=== PATIENT | male | born 1955 | race Caucasian/White ===

== ENCOUNTER 2017-11-05 14:41 | Emergency (ER) | payer OTHER, SELFPAY ==
[2017-11-05] MEDS ORDERED: Lidocaine 1% w/Epinephrine 1:100K 20 ML VIAL ONE (15:32)
[2017-11-05] MEDS ORDERED: Adacel (T-DAP) 0.5 ML VIAL ONE (15:32)
[2017-11-05] MEDS ORDERED: Ketorolac Tromethamine 30 MG/ML VIAL ONE (15:32)
--- NOTE | 2017-11-05 15:50 | RAD ---
TWO VIEWS OF RIGHT FOREARM: INDICATION: Right forearm injury. COMPARISON: None. IMPRESSION: No acute fracture or subluxation is evident. Radiocapitellar alignment appears within normal limits. POS: NIKO
== END 2017-11-05 17:27 | disposition home or self-care (01) ==
LOC: ERS 14:41
DX: S51.811A Laceration without foreign body of right forearm, initial encounter (principal); F17.210 Nicotine dependence, cigarettes, uncomplicated; Z71.6 Tobacco abuse counseling; W45.8XXA Other foreign body or object entering through skin, initial encounter
CPT/HCPCS: 12032; 90471; 90715; 96372; 99406; J1885; J2001

== ENCOUNTER 2017-12-27 09:37 | Outpatient (CLI) | payer OTHER ==
[~2017-12-27 09:37] MED LIST: Gadobenate Dimeglumine 529 MG/1 ML (20ML VIAL) ONE
--- NOTE | 2017-12-27 12:01 | MRI ---
PRE AND POSTCONTRAST BRAIN MRI: Date: 12/27/17 HISTORY: Constant headaches x2 weeks. Headache wakes patient up from sleep. COMPARISON: None. TECHNIQUE: Brain MRI is performed without and with intravenous Gadolinium administration. Multisequential, multi planar imaging is performed. FINDINGS: No hemorrhage on the axial gradient echo sequence. Appropriate T1 marrow signal intensity of the calvarium. Midline brain parenchymal structures are unr emarkable. No parenchymal mass, mass effect, or midline shift. Brain volume, age-appropriate. Cortical schaeffer-whit e matter differentiation is preserved. Ventricles and sulci are patent and symmetric. Central arterial flow-voids are maintained. Absent restricted diffusion. No pathologic enhancement of the brain parenchyma. There is extensive mild mucosal thickening involving bilateral frontal sinuses and anterior ethmoid a ir cells. There is mucosal thickening involving the left sphenoid sinus with near complete opacificat ion of the left sphenoid sinus. Minimal mucosal thickening in the left maxillary sinus. Adequate mast oid air cell aeration. IMPRESSION: 1. Paranasal sinus disease. 2. No intracranial pathology is appreciated. POS: NIKO
== END 2017-12-27 09:38 | disposition home or self-care (01) ==
LOC: TBSIIMAG 09:37
PROVIDERS: ATTEND Family Medicine
DX: R51 Headache (principal); J32.9 Chronic sinusitis, unspecified
CPT/HCPCS: 70553; A9579

== ENCOUNTER 2020-02-21 09:10 | Outpatient (CLI) | payer OTHER ==
--- NOTE | 2020-02-21 11:53 | RAD ---
LUMBAR SPINE SERIES TWO VIEWS: History: Back pain. Post op. Comparison: None FINDINGS: There is scoliotic change convex to the right. The vertebral bodies are normal in height. Degenerativ e osteophytic changes are seen along the course of the spine. Mild disc narrowing at L3-4 and L4-5. D isc implant is seen at the L5-S1 level. Marked degenerative facet changes are noted. Vascular calcifi cations are present. IMPRESSION: Scoliosis and moderate arthritic change of spine. Post op change at L5-S1. POS: [email or web address]
--- NOTE | 2020-02-21 11:54 | RAD ---
THORACIC SPINE THREE VIEWS: History: Back pain. FINDINGS: Vertebral bodies are normal in height. Degenerative osteophytes are present. Pedicles are intact. No acute bony process. Post op changes of the cervical spine are seen. Lungs appear somewhat hyperexpand ed. IMPRESSION: Mild arthritic changes of the spine. POS: GIUSEPPE
== END 2020-02-21 09:11 | disposition home or self-care (01) ==
LOC: BICRAD 09:10
PROVIDERS: ATTEND Specialist
DX: M47.24 Other spondylosis with radiculopathy, thoracic region (principal); M47.26 Other spondylosis with radiculopathy, lumbar region; M41.9 Scoliosis, unspecified; Z98.890 Other specified postprocedural states
CPT/HCPCS: 72070; 72100

== ENCOUNTER 2021-01-15 14:22 | Outpatient (CLI) | payer OTHER ==
[~2021-01-15 14:22] MED LIST changes: -Gadobenate Dimeglumine 529 MG/1 ML (20ML VIAL) ONE; +Iopamidol-370 76% 500 ML 1 ML ONE
[2021-01-15 14:47] LABS: Estimated GFR-MDRD - POC Greater than 90
== END 2021-01-15 14:23 | disposition home or self-care (01) ==
LOC: BICCT 14:22
PROVIDERS: ATTEND Otolaryngology Plastic Surgery within the Head & Neck
DX: J02.9 Acute pharyngitis, unspecified (principal); Z72.0 Tobacco use; M19.09 Primary osteoarthritis, other specified site; J34.89 Other specified disorders of nose and nasal sinuses
CPT/HCPCS: 70491; 82565; Q9967